=== PATIENT | male | born 1985 | race Caucasian/White ===

== ENCOUNTER 2024-12-22 02:46 | Emergency (ER) | payer SELFPAY ==
--- NOTE | 2024-12-22 02:49 | ED.GENADUL_ITS ---
Discharge Plan Disposition Patient Disposition: [facility] Condition: Stable Discharge Details Clinical Impression: Muscular dystrophy, Bilateral leg weakness, Bilateral leg pain, Bilateral leg ulcer Primary Care Provider: Unknown,Unknown ED Provider: Alec Bone Home Meds and New Rx's Prescriptions: No Action No Known Home Meds Discharge Instructions Instructions: Wound Care ED Additional Instructions: You were seen in the ED for bilateral leg pain and weakness. Unfortunately, this is a progression of your disease, muscular dystrophy. We did provide attention to wound care to the ulcers on your legs. You are strongly encouraged to reach out to the [facility] to establish primary care. You likely need referrals to neurology, physical medicine and rehab, physical therapy, wound care physicians in order to provide the multidisciplinary care that you need. You should start by reaching out to the primary care clinics there and get an appointment as soon as possible. Return to ED if your sores/ulcers appear to be infected, fever or chills, asymmetric swelling to your lower extremities, other concerns. Referrals: [facility] [Outside] ( Needs to establish primary care) HPI General Mode of arrival: wheelchair . Date/Time Provider Initiated Documentation: 12/22/24 02:49 . Limitations to Documentation: no limitations . Information obtained by: patient and police . HPI Narrative: Patient was brought to ED by police for blood draw. Patient subsequently decided he wanted to be seen. He complains of leg pain and weakness. This is not new. He has history of muscular dystrophy. He has not seen any physicians in over a year. States when he did see his primary care physician did not really do much in terms of management. Patient reports that as he was younger he went to [facility] his entire life. He has not seek out any care other than primary for years. He has leg pain and weakness that has been getting worse over months. He has sores on his legs that he states he is not sure how he is got those. combatant diver officer that brought him in for his blood draw states the patient had no complaints until he actually arrived here. combatant diver officer reports that he is able to ambulate though not very well and so brought him in to the ED in a wheelchair. There were no upper body complaints. There are no acute issues. There is no chest pain or shortness of breath. Related Data Home Medications ?Medication ?Instructions ?Recorded ?Confirmed Unknown [No Known Home Meds] 12/22/24 12/22/24 Allergies Allergy/AdvReac Type Severity Reaction Status Date / Time indomethacin (From Indocin) Allergy Skin Rash Verified 12/22/24 02:57 Exam Narrative Exam Narrative: Const: WDWN male in NAD. VS per triage. HEENT: NC/AT. Normal facial exam. Neck: Supple. Trachea midline. Lungs: Normal respiratory effort. Neuro: A+O x 3. Normal speech, mentation. Cranial nerves II - XII grossly intact. Normal strength and sensation BUE. BLE weakness with loss of muscle bulk and tone. Ext: No C/C/E. Extremely thin legs bilaterally with little muscle bulk. Multiple sores with eschar and some surrounding erythema to both distal tib/fib area. Medical Decision Making Unfortunate young male presenting to ED in police custody for blood draw who requested to be seen for bilateral lower extremity pain and weakness. Patient has history of muscular dystrophy. His lower extremities are consistent with said diagnosis. He has very little strength distally. He has some sores with eschar and inflammatory changes around them but no clear cellulitis. Patient reporting no primary care, neurologist, physical medicine and rehab, PT. There is no emergent condition at this time as he has progressive disease which needs multidisciplinary approach and primary care. We will clean and debride his wounds as best we can apply Xeroform and wrap. He is strongly encouraged to reach out to the [facility] as he lives on that side of the [facility]. He will benefit from a multidisciplinary approach that they can provide with the numerous resources and specialty services there. He is discharged into police custody. Return precautions provided. Quality:SDOH Health Related Social Needs: No Data to Display [facility] All Active Problems (Updated 12/22/24 @ 03:20 by Alec Bone MD) Bilateral leg ulcer (Acute) Bilateral leg pain (Acute) Bilateral leg weakness (Acute) Muscular dystrophy (Acute) Medical History Muscular dystrophy Social History Smoking/Tobacco Use Status: Current-Occasional Smoking risk assessment performed?: Yes Substance use type: unknown
[2024-12-22 02:50] VITALS: BP 152/82; PULSE 90; RESP 18; TEMP 36.9; O2SAT 99
[2024-12-22 03:01] VITALS: RESP 18
--- NOTE | 2024-12-22 03:29 | NUR.NOTE ---
Wound care provided to pt for both legs, legs cleaned and washed with soap and water, xeroform applied and dressed, MICHELE
== END 2024-12-22 03:37 ==
LOC: ER 03:26
PROVIDERS: Emergency Provider Emergency Medicine
DX: M79.604 Pain in right leg (principal); M79.605 Pain in left leg; L97.211 Non-pressure chronic ulcer of right calf limited to breakdown of skin; L97.221 Non-pressure chronic ulcer of left calf limited to breakdown of skin; G71.00 Muscular dystrophy, unspecified; R29.898 Other symptoms and signs involving the musculoskeletal system
CPT/HCPCS: 99283; 99285

== ENCOUNTER 2025-06-06 06:04 | Emergency (ER) | payer MEDICARE, SELFPAY ==
[2025-06-06] VITALS (25 sets, daily range): BP systolic 125–170; BP diastolic 69–108; PULSE 79–118; RESP 10–25; O2SAT 96–100
[2025-06-06] MEDS: fentaNYL 100 MCG/2 ML VIAL ×3 (05:50→06:00)
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
[2025-06-06] MEDS: Normal Saline Flush 10 ML SYR IVP (06:32)
[2025-06-06] MEDS: Omnipaque 350 MG/ML 100 ML BTL IJ (06:32)
[2025-06-06] MEDS: Normal Saline - Diluent 50 ML VIAL IJ (06:32)
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
[2025-06-06 06:34] LABS: Abs Immature Grans 0.10 10^3/uL (0.0-0.06); HCT 37.6 % (40.0-50.0); HGB 11.7 g/dL (13.5-17.5); Immature Grans % 0.8 %; MCH 25.5 pg (27.0-33.0); MCHC 31.1 % (32.0-36.0); MCV 82 fL (80-95); MPV 8.8 fL (8.0-11.0); Platelet Count 381 10^3/uL (130-400); RBC 4.58 10^6/uL (4.36-5.78); RDW 14.1 % (11.8-14.1); RDW-SD 41.6 fL; WBC 12.19 10^3/uL (4.4-10.8)
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
[2025-06-06 06:44] LABS: Anion Gap 3.9 mmol/L (3-11); BUN 16 mg/dL (7-18); CO2 30.1 mmol/L (21.0-32.0); Calcium 8.2 mg/dL (8.5-10.1); Chloride 102 mmol/L (98-107); Estimated GFR 126.72 (mL/min/1.73m2); Glucose 93 mg/dL (74-106); Potassium 3.8 mmol/L (3.5-5.1); Sodium 136 mmol/L (136-145)
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
[2025-06-06 07:07] LABS: Amylase 73 U/L (25-115); Creatine Kinase 213 U/L (39-308); Lipase 90 U/L (<78); Troponin I 8 ng/L (<or=76)
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
[2025-06-06 07:18] LABS: Glucose Negative (Negative)
[2025-06-06 07:51] LABS: Troponin I 9 ng/L (<or=76)
[2025-06-06] MEDS: Acetaminophen 500 MG TAB PO (07:58)
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
== END 2025-06-06 09:01 | disposition home or self-care (01) ==
PROVIDERS: Student in an Organized Health Care Education/Training Program; Emergency Provider Student in an Organized Health Care Education/Training Program
DX: M25.511 Pain in right shoulder (principal); M25.551 Pain in right hip; G89.29 Other chronic pain; R91.1 Solitary pulmonary nodule; J84.10 Pulmonary fibrosis, unspecified; K76.9 Liver disease, unspecified; V48.5XXA Car driver injured in noncollision transport accident in traffic accident, initial encounter
CPT/HCPCS: 00123; 36415; 74177; 82550; 82947; 83690; 84520; 86850; 86900; 86901; 93005; 99285; 70450; 70486; 71260; 72125; 80320; 81003; 82150; 82310; 82374; 82435; 82565; 84132; 84295; 84484; 85025; 93010; J3010; J3490